=== PATIENT | female | born 1950 | race Caucasian/White ===

== ENCOUNTER 2022-11-10 12:22 | Outpatient (REF) | payer MEDICARE, MEDICAID, SELFPAY ==
[2022-11-10 14:20] LABS: MANUAL DIFF FLAG NO
[2022-11-10 14:37] LABS: Basophils Absolute Auto 0.1 X10*3/uL (0.0-0.2); Eosinophils Absolute Auto 0.2 X10*3/uL (0.0-0.4); Hematocrit 35.9 % (37.0-47.0); Hemoglobin 12.3 g/dl (12.0-16.0); Imm Gran Abs Auto 0.01 X10*3/uL (0.00-0.03); Imm Gran Pct Auto 0.2 % (0.0-0.4); Lymphocytes Absolute Auto 1.6 X10*3/uL (1.2-4.9); Lymphocytes Percent Auto 33.2 % (20-40); Mean Corpuscular HGB Conc 34.3 g/dl (31.0-35.0); Mean Corpuscular Hemoglobin 32.4 pg (27.0-33.0); Mean Corpuscular Volume 94.5 fL (80.0-98.0); Mean Platelet Volume 9.7 fL (9.4-12.3); Monocytes Absolute Auto 0.5 X10*3/uL (0.1-1.2); Monocytes Percent Auto 9.3 % (2-11); Neutrophils Absolute Auto 2.6 x10*3/uL (2.0-8.3); Neutrophils Percent Auto 52.3 % (45-73); Platelet Count 400 X10*3/uL (160-400); Red Cell Distribution Width 12.2 % (11.0-16.0); White Blood Count 4.9 X10*3/uL (4.8-10.8)
[2022-11-10 15:34] LABS: Alanine Aminotransferase 11 U/L (0-31); Albumin Level 4.4 g/dL (3.5-5.0); Alkaline Phosphatase 70 U/L (39-117); Anion Gap 11 (12-20); Aspartate Amino Transferase 14 U/L (5-31); Bilirubin Total 0.4 mg/dL (0.0-1.0); Blood Urea Nitrogen 19 mg/dL (9-16); Calcium 9.4 mg/dL (8.4-10.2); Carbon Dioxide 24 mmol/L (22-29); Chloride 110 mmol/L (96-108); Cholesterol 266 mg/dL; Estimated Glomerular Filt Rate > 60; Glucose Fasting 90 mg/dL (60-99); HDL Cholesterol 120 mg/dL; LDL Cholesterol Calculated 125 mg/dl; Potassium 4.3 mmol/L (3.3-5.1); Sodium 141 mmol/L (135-145); Total Protein 6.9 g/dL (6.5-8.0); Triglycerides 106 mg/dL
[2022-11-10 15:51] LABS: TSH reflex Free T4 2.36 uIU/mL (0.32-4.0); Vitamin D 25-OH Total 56.2 ng/mL (>30)
== END 2022-11-10 12:23 | disposition home or self-care (01) ==
LOC: HO.WFDLDS 12:22
PROVIDERS: Visit Provider Nurse Practitioner Family
DX: Z00.00 Encounter for general adult medical examination without abnormal findings (principal); E55.9 Vitamin D deficiency, unspecified; E03.9 Hypothyroidism, unspecified
CPT/HCPCS: 36415; 80053; 80061; 82306; 84443; 85025

== ENCOUNTER 2022-11-15 12:17 | Outpatient (AMB) | payer MEDICARE, MEDICAID, SELFPAY ==
[2022-11-15 12:23] VITALS: BP 138/78; PULSE 72; RESP 14; TEMP 36.3; O2SAT 94; BMI 25.9
--- NOTE | 2022-11-15 12:23 | A.OFFPC_ITS ---
Vital Signs 11/15/22 12:23 Height 5 ft 3 in Weight 146 lb BMI 25.9 BP 138/78 Blood Pressure Location Lt brachial Position Sitting Respiration 14 Pulse 72 Pulse Source Pulse Oximeter Temp 97.3 F Temp Source Temporal Artery Scan Pulse Oximetry (%) 94 Oxygen Delivery Method Room Air Intake Visit Reasons: 1 mos f/u labs Intake Note: Patient is here to follow up on her labs. Patient reports she stopped taking cyclobenzaprine due to the prescibing doctor left the practice. Entry Clerk Required: No Accompanied by: Self / Same As Patient Allergies hylan G-F 20 [Synvisc] Allergy (Unknown, Verified 11/15/22 12:33) leg swelling Medication List - Last Reconciled 11/15/22 by Masha Deutsch CNP acetaminophen 1,000 mg PO Q12H celecoxib 200 mg PO DAILY cholecalciferol (vitamin D3) 2,000 units PO DAILY levothyroxine 100 mcg PO QAM 30 days omeprazole 40 mg PO DAILY 30 days prednisone 2.5 mg PO DAILY pregabalin 75 mg PO TID 30 days sertraline 50 mg PO DAILY 30 days Tobacco use date assessed: 09/10/22 Fall risk assessment: 2 + Falls in past year Last assessed Fall Risk: 11/15/22 Dental Screening Dental Screen Date: 11/15/22 Did you have a dental visit in the last 12 months?: No Did you have a dental problem in the last 6 months where you did not have access to dental care?: No Was dental information given to patient?: Yes HPI HPI Comments History of Present Illness Details 72-year-old female presents for a follow-up visit. She established care a month ago. She has history of chronic pain, fibromyalgia, bilateral lower extremity neuropathy, hypothyroidism, vitamin-D deficiency, anxiety and depression. She was prescribed sertraline for anxiety depression at her last visit and routine labs ordered. She notes she has been taking her medications as prescribed. She reports continued back pain, worse to the lumbar spine. Current treatment regimen is effective. She notes she ran out of cyclobenzaprine which she took at bedtime. She continues to follow-up with Orthopedics and Rheumatology. She denies anxiety depression symptoms. She declines talk therapy. [facility] Medical History (Updated 09/10/22 @ 12:38 by Masha Deutsch CNP) Acid reflux Acute low back pain due to spinal disorder Arthritis Depression Headache IBS (irritable bowel syndrome) Imbalance Neuropathy Stroke Thyroid disease Tremors of nervous system Surgical History (Updated 09/10/22 @ 11:56 by uYe Leiva MA) H/O hernia repair Family History (Updated 09/10/22 @ 12:02 by Tere Moreno CMA) Mother Thyroid disorder Father High blood pressure Unknown Thyroid disorder Social History Housing: House Patient Tobacco Use Status: Never used Tobacco e-Cigarette/Vaping Use: Never Used service: No Current occupational status: retired Cognitive needs: No Hearing needs: No Vision needs: Yes Questionnaire PHQ-9 Over the last 2 weeks, how often have you been bothered by any of the following problems? 1. Little interest or pleasure in doing things: not at all 2. Feeling down, depressed, or hopeless: not at all 3. Trouble falling or staying asleep, or sleeping too much: not at all 4. Feeling tired or having little energy: not at all 5. Poor appetite or overeating: not at all 6. Feeling bad about yourself - or that you are a failure or have let yourself or your family down: not at all 7. Trouble concentrating on things, such as reading the newspaper or watching television: not at all 8. Moving or speaking so slowly that other people could have noticed. Or the opposite - being so fidgety or restless that you have been moving around a lot more than usual: not at all 9. Thoughts that you would be better off or of hurting yourself in some way: not at all Total score: 0 Depression Screening Interpretation: Negative 38948 - PHQ-9 Billing: Yes Source: Developed by Drs. Jose Martinez, Izabella Nassar, Antwan Fontana and colleagues, with an educational seth from [employer]. Thrive Questionnaire Date Thrive assessed: 09/10/22 BENJI-7 AMB Questionnaire BENJI-7 Date BENJI - 7 assessed: 11/15/22 Feeling nervous, anxious, or on edge: 0 = Not at all Not being able to stop or control worryin = Not at all Worrying too much about different things: 0 = Not at all Trouble relaxin = Not at all Being so restless that it is hard to sit still: 0 = Not at all Becoming easily annoyed or irritable: 0 = Not at all Feeling afraid as if something awful might happen: 0 = Not at all Total BENJI-7 score (0-4 normal; 5-9 mild; 10-14 moderate; 15-21 severe): 0 Source: Developed by Drs. Jose Martinez, Izabella Nassar, Antwan Fontana and colleagues, with an educational seth from [employer]. BENJI-7 Assessment Billing BENJI-7 Assessment Tool: BENJI-7 Assessment 85921 Review of Systems Const Details: Const Denies chills, Denies fatigue, Denies fever(s), Denies headache(s) and Denies weakness ENT Denies dizziness and Denies headache(s) Card Denies chest pain, Denies lightheadedness, Denies dyspnea and Denies other (Palpitations) Resp Denies cough, Denies dyspnea, Denies wheezing and Denies other ( shortness of breath) GI Denies abdominal pain, Denies melena, Denies hematochezia, Denies change in bowel habits, Denies dyspepsia and Denies nausea Denies hematuria and Denies dysuria Musc Reports back pain, Denies abnormal gait, Denies numbness and Denies tingling Skin/Breast Denies rash, Denies unusual bruising and Denies wounds Neuro Denies abnormal gait, Denies dizziness, Denies headache(s), Denies memory loss, Denies numbness, Denies Sensory deficit (Neuro), Denies tingling and Denies weakness Psych Denies anxiety, Denies depression, Denies memory loss Endo Denies cold intolerance, Denies fatigue, Denies heat intolerance, Denies polydipsia and Denies polyuria Aller/Immun Denies wheezing Physical exam (Primary Care) Vital Signs: Last Vital Signs Temp 97.3 F 11/15/22 12:23 Pulse 72 11/15/22 12:23 Resp 14 11/15/22 12:23 BP 138/78 11/15/22 12:23 Pulse Ox 94 11/15/22 12:23 Oxygen Delivery Method Room Air 11/15/22 12:23 BMI result Body Mass Index 25.9 Tobacco/Smoking Status: Tobacco use Status Tobacco use date assessed 09/10/22 11/15/22 12:33 Patient Tobacco Use Status Never used Tobacco 11/15/22 12:33 e-Cigarette/Vaping Use Never Used 11/15/22 12:33 Depression Screening Interpretation: Negative Thrive Assessment: Date of Thrive Assessment Date Thrive assessed 09/10/22 11/15/22 12:33 Const Other: General: no acute distress and well developed Nutritional Appearance: well nourished Orientation/consciousness: patient oriented x3 [facility] Head: Yes normocephalic and Yes atraumatic Eyes General: appearance normal, both eyes and all related structures Pupils: Equal, round and reactive pupils present EOM: EOMs intact bilaterally Resp Effort & Inspection: normal respiratory effort Auscultation: clear to auscultation bilaterally Cardio Rate: regular rate Rhythm: regular rhythm Heart sounds: S1 normal heart sound present, S2 normal heart sound present, no gallops, no murmurs and no rubs GI Palpation (GI): No Abdominal aortic bruit present, Soft to palpation, nontender, No hepatosplenomegaly present and No Rebound tenderness present Auscultation: normal bowel sounds General: Yes no CVA tenderness Back/Spine/Pelvis Back: no CVA tenderness Cervical Spine: cervical ROM normal and No Cervical spine tenderness Thoracic/Lumbar Spine: thoraco-lumbar ROM normal, No pain with thoraco-lumbar ROM, No thoracic spinal tenderness and lumbar spinal tenderness Extrem General: Yes normal to inspection, No edema and No calf tenderness Skin General: warm and dry. Normal skin color. Normal skin turgor Lesions: no lesions Rashes: no rashes Trauma: no lacerations or abrasions Wounds: no wounds Nails: normal Neuro General: patient oriented x3, gait normal and no focal neuro deficit Cranial nerves: Yes Equal, round and reactive pupils present Cognition (Neuro): normal cognition Gait exam (Neuro): Normal gait present Sensory Exam: No Sensory deficit (Neuro) Psych Appearance: grossly normal Affect: normal affect Attitude: cooperative Thought process: Normal thought process present Assessment and Plan Assessment & Plan (1) Chronic pain: Code(s): G89.29 - Other chronic pain Plan: She reports continued back pain, worse to the lumbar spine. Current treatment regimen is effective. She continues to follow-up with Orthopedics and Rheumatology. Cyclobenzaprine ordered. Take as prescribed Continue with current treatment regimen Continue follow-up with Orthopedics and Rheumatology as planned Return with worsening or new symptoms Verbalized understanding and agreed with treatment plan. (2) Anxiety: Code(s): F41.9 - Anxiety disorder, unspecified Plan: BENJI-7 PHQ-9 scores are negative Declines talk therapy Sertraline as prescribed Routine exercise encouraged Follow-up with worsening or new symptoms Verbalized understanding and agreed with treatment plan. (3) Depression: Code(s): F32.A - Depression, unspecified Plan: As above (4) Hypothyroidism: Code(s): E03.9 - Hypothyroidism, unspecified Plan: Recent lab results reviewed with the patient TSH is normal Continue with current treatment regimen Follow-up with concerns or symptoms Verbalized understanding and agreed with treatment plan. (5) Vitamin D deficiency: Code(s): E55.9 - Vitamin D deficiency, unspecified Plan: Normal vitamin-D level Continue with current treatment regimen Follow-up with concerns or symptoms Verbalized understanding and agreed with treatment plan. Medications: New cyclobenzaprine 10 mg PO BEDTIME 90 days PRN 1 tab 0RF muscle spasm Changed From omeprazole 40 mg PO DAILY 30 days 30 caps 0RF To omeprazole 40 mg PO DAILY 90 days 90 caps 1RF Coding Level of Care Code Est Pt Level 3 (71055) Diagnoses Chronic pain G89.29 Anxiety F41.9 Depression F32.A Hypothyroidism E03.9 Vitamin D deficiency E55.9 Additional Codes BENJI-7 Assessment Billing - BENJI-7 Assessment Tool: BENJI-7 Assessment 97509 ([id number]) Time Spent (min) 25
== END 2022-11-15 12:55 | disposition home or self-care (01) ==
PROVIDERS: PCP Nurse Practitioner Family; Visit Provider Nurse Practitioner Family
DX: E03.9 Hypothyroidism, unspecified (principal); F41.9 Anxiety disorder, unspecified; E55.9 Vitamin D deficiency, unspecified; G89.29 Other chronic pain; F32.A Depression, unspecified
CPT/HCPCS: 99213

== ENCOUNTER 2022-11-15 12:21 | Outpatient (REF) | payer MEDICARE, MEDICAID, SELFPAY ==
[2022-11-15 14:23] LABS: Appearance Urine Clear; Color Urine Yellow; Glucose Urine UA Negative (Negative); Leukocyte Esterase Urine Negative (Negative); Nitrite Urine Negative (Negative); PH 5.5 (5.0-9.0); Specific Gravity - Urine 1.015 (1.005-1.025); Urine Blood Negative (Negative); Urine Ketones Negative (Negative); Urine Protein Negative (Neg-Trace)
== END 2022-11-15 12:22 | disposition home or self-care (01) ==
LOC: HO.WFDLDS 12:21
PROVIDERS: Visit Provider Nurse Practitioner Family
DX: Z00.00 Encounter for general adult medical examination without abnormal findings (principal)
CPT/HCPCS: 81003

== ENCOUNTER 2023-01-05 13:13 | Outpatient (AMB) | payer MEDICARE, MEDICAID, SELFPAY ==
[2023-01-05 13:21] VITALS: BP 130/76; PULSE 82; RESP 13; TEMP 36.6; O2SAT 98
--- NOTE | 2023-01-05 13:21 | MHC.PC.OV ---
Vital Signs 01/05/23 13:21 Height 5 ft 3 in BMI Reason not done Patient refused/unable BP 130/76 Blood Pressure Location Lt brachial Position Sitting Respiration 13 Pulse 82 Pulse Source Pulse Oximeter Temp 97.8 F Temp Source Temporal Artery Scan Pulse Oximetry (%) 98 Oxygen Delivery Method Room Air Intake Visit Reasons: 1 month CPE Intake Note: Patient states that shes been having a hard time getting medications due to pharmacy stating that they are not send anything else to office and also told patient that its all on you now. Patient states that pharmacy has also told her that its the way scripts are written why things are being sent back or not filled properly. Coke Inspector Required: No Accompanied by: Self / Same As Patient Allergies hylan G-F 20 [Synvisc] Allergy (Unknown, Verified 01/05/23 13:35) leg swelling Medication List - Last Reconciled 01/05/23 by Masha Deutsch CNP acetaminophen 1,000 mg PO Q12H celecoxib 200 mg PO DAILY cholecalciferol (vitamin D3) 2,000 units PO DAILY cyclobenzaprine 10 mg PO BEDTIME PRN 90 days levothyroxine 100 mcg PO QAM 90 days omeprazole 40 mg PO DAILY 90 days prednisone 2.5 mg PO DAILY pregabalin 75 mg PO TID 30 days sertraline 50 mg PO DAILY 30 days Tobacco use date assessed: 09/10/22 Fall risk assessment: 1 Fall in past year Last assessed Fall Risk: 01/05/23 Dental Screening Dental Screen Date: 01/05/23 Did you have a dental visit in the last 12 months?: No Did you have a dental problem in the last 6 months where you did not have access to dental care?: No Was dental information given to patient?: Yes HPI HPI Comments History of Present Illness Details 72-year-old female presents for complete physical exam. She established care on 09/10/2022. Routine labs were ordered. Sertraline was prescribed for anxiety and depression. She declined psychotherapy. She was advised to follow-up in a month. She has PMH significant for hypothyroidism, hyperlipidemia, chronic lower back and left knee pain, osteoarthritis, fibromyalgia, BLE neuropathy, scoliosis, GERD, vitamin D deficiency, anxiety, and depression. She reports history of hemorrhagic stroke with no residual deficits. She presents chronic generalized joints and body aches due to fibromyalgia. She is on pregabalin, celecoxib, cyclobenzaprine, prednisone. She reports significant with pregabalin. She reports significant improvement of anxiety and depression symptoms on Sertraline. She is followed by [facility]. She has not follow up with ortho in over a year. She states that her last colonoscopy 1-2 year ago: normal. She notes that her last mammogram was a year or so ago. She states I told them i don't want to know the result. She declines a new mammogram order. She states that her last bone scan was a month ago: no osteopenia or osteoporosis. She states she has not received the pneumonia vaccines but intend to get vaccinated. PENDING SALE TO [facility] Medical History Acid reflux Acute low back pain due to spinal disorder Arthritis Depression Headache IBS (irritable bowel syndrome) Imbalance Neuropathy Stroke Thyroid disease Tremors of nervous system Surgical History H/O hernia repair Family History Mother Thyroid disorder Father High blood pressure Unknown Thyroid disorder Social History Housing: House Patient Tobacco Use Status: Never used Tobacco e-Cigarette/Vaping Use: Never Used service: No Current occupational status: retired Cognitive needs: No Hearing needs: No Vision needs: No Questionnaire PHQ-9 Over the last 2 weeks, how often have you been bothered by any of the following problems? 1. Little interest or pleasure in doing things: more than half the days 2. Feeling down, depressed, or hopeless: not at all 3. Trouble falling or staying asleep, or sleeping too much: nearly every day 4. Feeling tired or having little energy: nearly every day 5. Poor appetite or overeating: not at all 6. Feeling bad about yourself - or that you are a failure or have let yourself or your family down: not at all 7. Trouble concentrating on things, such as reading the newspaper or watching television: not at all 8. Moving or speaking so slowly that other people could have noticed. Or the opposite - being so fidgety or restless that you have been moving around a lot more than usual: not at all 9. Thoughts that you would be better off or of hurting yourself in some way: not at all Total score: 8 Depression Screening Interpretation: Positive Depression Screening Follow-up: Existing condition and In treatment Depression Screening Done: Yes Source: Developed by Drs. Jose Martinez, Izabella Nassar, Antwan Fontana and colleagues, with an educational seth from [employer]. Thrive Questionnaire Date Thrive assessed: 09/10/22 AUDIT C Alcohol Use Questionnaire (AUDIT-C) 1. How often do you have a drink containing alcohol?: 2-3 times a week 2. How many drinks containing alcohol do you have on a typical day when you are drinking?: 3 or 4 3. How often do you have six or more drinks on one occasion?: Never Total Score: 4 BENJI-7 AMB Questionnaire BENJI-7 Date BENJI - 7 assessed: 01/05/23 Feeling nervous, anxious, or on edge: 0 = Not at all Not being able to stop or control worryin = Not at all Worrying too much about different things: 0 = Not at all Trouble relaxin = Nearly every day Being so restless that it is hard to sit still: 0 = Not at all Becoming easily annoyed or irritable: 0 = Not at all Feeling afraid as if something awful might happen: 0 = Not at all Total BENJI-7 score (0-4 normal; 5-9 mild; 10-14 moderate; 15-21 severe): 3 Source: Developed by Drs. Jose Martinez, Izabella Nassar, Antwan Fontana and colleagues, with an educational seth from [employer]. Review of Systems Const Details: Denies chills, Denies fatigue, Denies fever(s), Denies headache(s) and Denies weakness HEENT Denies change in vision, Denies dizziness, Denies headache(s), Denies hearing loss, Denies nasal congestion, Denies sinus pain, Denies sinus pressure and Denies sore throat Card Denies chest pain, Denies lightheadedness, Denies dyspnea and Denies other (palpitations) Resp Denies cough, Denies dyspnea and Denies wheezing GI Denies abdominal pain, Denies melena, Denies hematochezia, Denies change in bowel habits, Denies dyspepsia and Denies nausea Denies hematuria and Denies dysuria Musc Denies abnormal gait, Denies myalgias, Denies arthralgias, Denies numbness and Denies tingling Skin/Breast Denies rash, Denies unusual bruising and Denies wounds Neuro Denies abnormal gait, Denies dizziness, Denies headache(s), Denies memory loss, Denies numbness, Denies Sensory deficit (Neuro), Denies tingling and Denies weakness Psych Denies anxiety, Denies depression and Denies memory loss Endo Denies cold intolerance, Denies fatigue, Denies heat intolerance, Denies polydipsia and Denies polyuria Ivan/Lymph Denies easy bleeding and Denies easy bruising Aller/Immun Denies wheezing Physical exam (Primary Care) Vital Signs: Last Vital Signs Temp 97.8 F 01/05/23 13:21 Pulse 82 01/05/23 13:21 Resp 13 01/05/23 13:21 BP 130/76 01/05/23 13:21 Pulse Ox 98 01/05/23 13:21 Oxygen Delivery Method Room Air 01/05/23 13:21 Tobacco/Smoking Status: Tobacco use Status Tobacco use date assessed 09/10/22 01/05/23 13:37 Patient Tobacco Use Status Never used Tobacco 01/05/23 13:37 e-Cigarette/Vaping Use Never Used 01/05/23 13:37 PHQ-9: PHQ-9 Score PHQ-9: Total score 8 01/05/23 13:48 Depression Screening Interpretation: Positive Depression Screening Follow-up: Existing condition and In treatment Thrive Assessment: Date of Thrive Assessment Date Thrive assessed 09/10/22 01/05/23 13:37 Const Other: General: no acute distress, well developed, alert and awake Nutritional Appearance: well nourished Orientation/consciousness: patient oriented x3 [facility] Head: Yes normocephalic and Yes atraumatic Ears: hearing grossly normal bilaterally and TM's normal bilaterally General nose exam: Normal external nose present and Normal nares present Mouth: Normal oral and palatal mucosa present and moist mucous membranes Teeth and gingiva: dentition normal Throat: Yes oropharynx normal Eyes Pupils: Equal, round and reactive pupils present and Pupil accommodation reflex normal EOM: EOMs intact bilaterally Neck Neck: Yes normal visual inspection, Yes no lymphadenopathy and Yes trachea midline Thyroid: Thyroid normal Carotids: no bruits Lymphatic: no lymphadenopathy noted Chest Chest palpation & inspection: normal inspection of the chest Resp Effort & Inspection: normal respiratory effort Auscultation: clear to auscultation bilaterally Cardio Rate: regular rate Rhythm: regular rhythm Heart sounds: S1 normal heart sound present, S2 normal heart sound present, no gallops, no murmurs and no rubs Bruits: no abdominal aortic bruits and no carotid bruits GI Palpation (GI): No Abdominal aortic bruit present, Soft to palpation, nontender, No hepatosplenomegaly present and No Rebound tenderness present Auscultation: normal bowel sounds General: Yes no CVA tenderness Back/Spine/Pelvis Back: no CVA tenderness Dextroscoliosis Cervical Spine: cervical spine normal, No Cervical spine tenderness Thoracic/Lumbar Spine: No pain with thoraco-lumbar ROM, No thoracic spinal tenderness and No lumbar spinal tenderness Skin General: warm and dry. Normal skin color. Normal skin turgor Lesions: no lesions Rashes: no rashes Trauma: no lacerations or abrasions Wounds: no wounds Nails: normal Neuro General: patient oriented x3, gait normal and CN's II-XI intact bilaterally Cranial nerves: Yes Equal, round and reactive pupils present Cognition (Neuro): normal cognition Gait exam (Neuro): Normal gait present Motor exam (neuro): 5/5 motor strength present throughout Sensory Exam: No Sensory deficit (Neuro) Deep tendon reflexes (DTR's): Right patellar reflex intensity grade: 2+ and Left patellar reflex intensity grade: 2+ Extrem General: Yes normal to inspection, No edema and No calf tenderness Psych Appearance: grossly normal Affect: normal affect Attitude: cooperative Thought process: Normal thought process present Assessment and Plan Assessment & Plan (1) Normal physical examination, routine: Code(s): Z00.00 - Encounter for general adult medical examination without abnormal findings Plan: Normal physical exam with moderate physical limitations noted due to generalized muscle and joint ache Continue with current pain regimen Continue follow-up with Rheumatology as planned Follow-up in 3 months or return sooner with worsening or new symptoms Verbalized understanding and agreed with treatment plan. (2) Hyperlipidemia: Code(s): E78.5 - Hyperlipidemia, unspecified Qualifiers: Hyperlipidemia type: pure hypercholesterolemia Qualified Code(s): E78.00 - Pure hypercholesterolemia, unspecified Plan: Recent lab results reviewed with the patient Total cholesterol and LDL were elevated. Triglycerides and HDL were normal. Advised to limit foods high in saturated fat and avoid foods high trans fat Routine exercise encouraged Will continue to monitor Verbalized understanding and agreed with treatment plan. (3) Vaccine counseling: Code(s): Z71.85 - Encounter for immunization safety counseling Plan: She states she has not received the pneumonia vaccines but intend to get vaccinated. Instructed on importance of vaccinations and encouraged to get the pneumonia vaccines. Verbalized understanding and agreed with treatment plan. Medications: Changed From cholecalciferol (vitamin D3) 2,000 units PO DAILY To cholecalciferol (vitamin D3) 2,000 units PO DAILY 90 days 90 caps 2RF Refilled sertraline 50 mg PO DAILY 30 days 30 tabs 3RF Coding Level of Care Code Est Pt Prev Care >65y(03450) Diagnoses Normal physical examination, routine Z00.00 Pure hypercholesterolemia E78.00 Hyperlipidemia type: pure hypercholesterolemia Vaccine counseling Z71.85
== END 2023-01-05 14:18 | disposition home or self-care (01) ==
PROVIDERS: PCP Nurse Practitioner Family; Visit Provider Nurse Practitioner Family
DX: Z00.00 Encounter for general adult medical examination without abnormal findings (principal); E78.00 Pure hypercholesterolemia, unspecified; Z71.85 Encounter for immunization safety counseling
CPT/HCPCS: 99397

== ENCOUNTER 2023-04-29 13:26 | Outpatient (AMB) | payer MEDICARE, SELFPAY ==
[2023-04-29 13:34] VITALS: BP 144/88; PULSE 62; RESP 13; TEMP 36.6; O2SAT 100; BMI 26.7
--- NOTE | 2023-04-29 13:34 | A.OFFPC_ITS ---
Vital Signs 04/29/23 13:34 Height 5 ft 3 in Weight 150 lb 8 oz BMI 26.7 BP 144/88 H Blood Pressure Location Rt brachial Position Sitting Respiration 13 Pulse 62 Pulse Source Pulse Oximeter Temp 97.8 F Temp Source Temporal Artery Scan Pulse Oximetry (%) 100 Oxygen Delivery Method Room Air Intake Visit Reasons: 3 month follow,Thyroid Senior Scientist Required: No Accompanied by: Self / Same As Patient Allergies hylan G-F 20 [Synvisc] Allergy (Unknown, Verified 04/29/23 13:48) leg swelling Medication List - Last Reconciled 04/29/23 by Masha Deutsch CNP acetaminophen 1,000 mg PO Q12H celecoxib 200 mg PO DAILY cholecalciferol (vitamin D3) 2,000 units PO DAILY 90 days cyclobenzaprine 10 mg PO BEDTIME PRN 90 days levothyroxine 100 mcg PO QAM 90 days omeprazole 40 mg PO DAILY 90 days prednisone 2.5 mg PO DAILY pregabalin 75 mg PO TID 30 days sertraline 50 mg PO DAILY 30 days Tobacco use date assessed: 04/29/23 Fall risk assessment: No Falls in past year Last assessed Fall Risk: 04/29/23 Dental Screening Dental Screen Date: 04/29/23 Did you have a dental visit in the last 12 months?: No Did you have a dental problem in the last 6 months where you did not have access to dental care?: No Was dental information given to patient?: Yes HPI HPI Comments History of Present Illness Details 72-year-old female presents for hypothyr oidism follow-up She admits to taking her medications as prescribed without adverse reactions. She notes she currently takes sertraline 75 mg daily She reports continued depression which she attributes to generalized chronic pain She denies acute symptoms at this time She continues to follow Rheumatology for OA and fibromyalgia [facility] Medical History Dextroscoliosis Depression Tremors of nervous system Imbalance Neuropathy Headache Acid reflux IBS (irritable bowel syndrome) Acute low back pain due to spinal disorder Arthritis Thyroid disease Stroke Surgical History H/O hernia repair Family History Mother Thyroid disorder Father High blood pressure Unknown Thyroid disorder Social History Housing: House Patient Tobacco Use Status: Never used Tobacco e-Cigarette/Vaping Use: Never Used service: No Current occupational status: retired Cognitive needs: No Hearing needs: No Vision needs: No Questionnaire PHQ-9 Over the last 2 weeks, how often have you been bothered by any of the following problems? 1. Little interest or pleasure in doing things: not at all 2. Feeling down, depressed, or hopeless: several days 3. Trouble falling or staying asleep, or sleeping too much: nearly every day 4. Feeling tired or having little energy: nearly every day 5. Poor appetite or overeating: not at all 6. Feeling bad about yourself - or that you are a failure or have let yourself or your family down: not at all 7. Trouble concentrating on things, such as reading the newspaper or watching television: nearly every day 8. Moving or speaking so slowly that other people could have noticed. Or the opposite - being so fidgety or restless that you have been moving around a lot more than usual: not at all 9. Thoughts that you would be better off or of hurting yourself in some way: not at all Total score: 10 Depression Screening Interpretation: Positive Depression Screening Done: Yes 42620 - PHQ-9 Billing: Yes Source: Developed by Drs. Jose Martinez, Izabella Nassar, Antwan Fontana and colleagues, with an educational seth from [email or web address]. Thrive Questionnaire Date Thrive assessed: 09/10/22 BENJI-7 AMB Questionnaire BENJI-7 Date BENJI - 7 assessed: 04/29/23 Feeling nervous, anxious, or on edge: 2 = More than half the days Not being able to stop or control worryin = Not at all Worrying too much about different things: 0 = Not at all Trouble relaxin = Nearly every day Being so restless that it is hard to sit still: 0 = Not at all Becoming easily annoyed or irritable: 0 = Not at all Feeling afraid as if something awful might happen: 0 = Not at all Total BENJI-7 score (0-4 normal; 5-9 mild; 10-14 moderate; 15-21 severe): 5 Source: Developed by Drs. Jose Martinez, Izabella Nassar, Antwan Fontana and colleagues, with an educational seth from [email or web address]. BENJI-7 Assessment Billing BENJI-7 Assessment Tool: BENJI-7 Assessment 81135 Review of Systems Const Details: Const Denies chills, Denies fatigue, Denies fever(s), Denies headache(s) and Denies weakness ENT Denies dizziness and Denies headache(s) Card Denies chest pain, Denies lightheadedness, Denies dyspnea and Denies other (Palpitations) Resp Denies cough, Denies dyspnea, Denies wheezing and Denies other ( shortness of breath) GI Denies abdominal pain, Denies melena, Denies hematochezia, Denies change in bowel habits, Denies dyspepsia and Denies nausea Denies hematuria and Denies dysuria Musc Reports as per HPI Skin/Breast Denies rash, Denies unusual bruising and Denies wounds Neuro Denies abnormal gait, Denies dizziness, Denies headache(s), Denies memory loss, Denies numbness, Denies Sensory deficit (Neuro), Denies tingling and Denies weakness Psych Denies anxiety, Denies depression, Denies memory loss Endo Denies cold intolerance, Denies fatigue, Denies heat intolerance, Denies polydipsia and Denies polyuria Aller/Immun Denies wheezing Physical exam (Primary Care) Vital Signs: Last Vital Signs Temp 97.8 F 04/29/23 13:34 Pulse 62 04/29/23 13:34 Resp 13 04/29/23 13:34 BP 144/88 H 04/29/23 13:34 Pulse Ox 100 04/29/23 13:34 Oxygen Delivery Method Room Air 04/29/23 13:34 BMI result Body Mass Index 26.7 Tobacco/Smoking Status: Tobacco use Status Tobacco use date assessed 04/29/23 04/29/23 13:41 Patient Tobacco Use Status Never used Tobacco 04/29/23 13:41 e-Cigarette/Vaping Use Never Used 04/29/23 13:41 Depression Screening Interpretation: Positive Thrive Assessment: Date of Thrive Assessment Date Thrive assessed 09/10/22 04/29/23 13:41 Const Other: General: no acute distress and well developed Nutritional Appearance: well nourished Orientation/consciousness: patient oriented x3 [facility] Head: Yes normocephalic and Yes atraumatic Eyes General: appearance normal, both eyes and all related structures Pupils: Equal, round and reactive pupils present EOM: EOMs intact bilaterally Resp Effort & Inspection: normal respiratory effort Auscultation: clear to auscultation bilaterally Cardio Rate: regular rate Rhythm: regular rhythm Heart sounds: S1 normal heart sound present, S2 normal heart sound present, no gallops, no murmurs and no rubs GI Palpation (GI): No Abdominal aortic bruit present, Soft to palpation, nontender, No hepatosplenomegaly present and No Rebound tenderness present Auscultation: normal bowel sounds General: Yes no CVA tenderness Back/Spine/Pelvis Back: no CVA tenderness Cervical Spine: cervical ROM normal and No Cervical spine tenderness Thoracic/Lumbar Spine: thoraco-lumbar ROM normal, No pain with thoraco-lumbar ROM, No thoracic spinal tenderness and No lumbar spinal tenderness Extrem General: Yes normal to inspection, No edema and No calf tenderness Skin General: warm and dry. Normal skin color. Normal skin turgor Lesions: no lesions Rashes: no rashes Trauma: no lacerations or abrasions Wounds: no wounds Nails: normal Neuro General: patient oriented x3, gait normal and no focal neuro deficit Cranial nerves: Yes Equal, round and reactive pupils present Cognition (Neuro): normal cognition Gait exam (Neuro): Normal gait present Sensory Exam: No Sensory deficit (Neuro) Psych Appearance: grossly normal Affect: normal affect Attitude: cooperative Thought process: Normal thought process present Assessment and Plan Assessment & Plan (1) Hypothyroidism: Code(s): E03.9 - Hypothyroidism, unspecified Plan: Continue with current treatment regimen Previous TSH was normal. Will recheck TSH/T4. Advised to get blood work done before next visit Follow-up in 1 month or return sooner with symptoms or concerns Verbalized understanding and agreed with treatment plan (2) Anxiety: Code(s): F41.9 - Anxiety disorder, unspecified Plan: BENJI-7 in PHQ-9 scores revealed mild anxiety and moderate depression respectively Continued depression related to generalized chronic pain Continue with current pain regimen Will increase sertraline to 100 mg daily. Take as prescribed Follow-up in 1 month or return sooner with worsening or new symptoms Verbalized understanding and agreed with treatment plan (3) Depression: Code(s): F32.A - Depression, unspecified Plan: As above (4) Fibromyalgia: Code(s): M79.7 - Fibromyalgia Plan: Chronic generalized pain Continue current treatment regimen Continue follow-up with Rheumatology as planned Verbalized understanding and agreed with plan (5) Osteoarthritis: Code(s): M19.90 - Unspecified osteoarthritis, unspecified site Plan: As above (6) Elevated BP without diagnosis of hypertension: Code(s): R03.0 - Elevated blood-pressure reading, without diagnosis of hypertension Plan: Blood pressure is 144/88, slightly above goal of less than 140/90 Denies iraj sodium diet Advised to monitor BP daily, record readings, and bring log to her next appointment Low sodium diet encouraged Follow up in 1 month or return sooner with symptoms or concerns Verbalized understanding and agreed with the treatment plan Orders: Orders Lipid Panel Today E78.5 - Hyperlipidemia, unspecified TSH reflex Free T4 Today E03.9 - Hypothyroidism, unspecified Medications: New sertraline 100 mg PO DAILY 30 days 30 tabs 3RF Discontinued sertraline Discontinued Reason: Doctor's Order 50 mg PO DAILY 30 days 30 tabs 3RF Coding Level of Care Code Est Pt Level 3 (80292) Diagnoses Hypothyroidism E03.9 Anxiety F41.9 Depression F32.A Fibromyalgia M79.7 Osteoarthritis M19.90 Elevated BP without diagnosis of hypertension R03.0 Additional Codes BENJI-7 Assessment Billing - BENJI-7 Assessment Tool: BENJI-7 Assessment [id number] ([id number])
== END 2023-04-29 14:22 | disposition home or self-care (01) ==
PROVIDERS: PCP Nurse Practitioner Family; Visit Provider Nurse Practitioner Family
DX: E03.9 Hypothyroidism, unspecified (principal); F41.9 Anxiety disorder, unspecified; F32.A Depression, unspecified; M79.7 Fibromyalgia; M19.90 Unspecified osteoarthritis, unspecified site; R03.0 Elevated blood-pressure reading, without diagnosis of hypertension
CPT/HCPCS: 96127; 99213

== ENCOUNTER 2023-07-08 16:31 | Outpatient (AMB) | payer MEDICARE, MEDICAID, SELFPAY ==
--- NOTE | 2023-07-08 16:32 | MHC.PC.OV ---
Vital Signs 07/08/23 16:33 07/08/23 16:52 Height 5 ft 3 in Weight 154 lb BMI 27.3 BP 144/90 H 136/94 H Blood Pressure Location Rt brachial Rt brachial Position Sitting Sitting Respiration 13 Pulse 78 Pulse Source Pulse Oximeter Temp 98.3 F Temp Source Temporal Artery Scan Pulse Oximetry (%) 95 Oxygen Delivery Method Room Air Intake Visit Reasons: HTN, HLD, hypothyroidism, anxiety, depression Extracorporeal Technician Required: No Accompanied by: Self / Same As Patient Allergies hylan G-F 20 [Synvisc] Allergy (Unknown, Verified 07/08/23 16:41) leg swelling Tobacco use date assessed: 04/29/23 Fall risk assessment: No Falls in past year Last assessed Fall Risk: 07/08/23 Dental Screening Dental Screen Date: 04/29/23 HPI HPI Comments History of Present Illness Details 72-year-old female presents for elevated blood pressure reading, hyperlipidemia, hypothyroidism, anxiety, and depression follow-up She notes that she got lipid panel and TSH blood work done at the hospital endorsed emptying and was told the results would be available for his PCP before today. Results not currently available in patient's chart She admits to taking her medications as prescribed without adverse reactions She reports improved anxiety and depression symptoms since Sertraline was increased to 100 mg daily She denies acute symptoms at this time [facility] Medical History Dextroscoliosis Depression Tremors of nervous system Imbalance Neuropathy Headache Acid reflux IBS (irritable bowel syndrome) Acute low back pain due to spinal disorder Arthritis Thyroid disease Stroke Surgical History H/O hernia repair Family History (Updated 07/08/23 @ 16:43 by VENICE Ramos) Mother Thyroid disorder Father High blood pressure Unknown Thyroid disorder Social History Housing: House Patient Tobacco Use Status: Never used Tobacco e-Cigarette/Vaping Use: Never Used service: No Current occupational status: retired Cognitive needs: No Hearing needs: No Vision needs: No Questionnaire PHQ-9 Over the last 2 weeks, how often have you been bothered by any of the following problems? 1. Little interest or pleasure in doing things: not at all 2. Feeling down, depressed, or hopeless: not at all 3. Trouble falling or staying asleep, or sleeping too much: nearly every day 4. Feeling tired or having little energy: nearly every day 5. Poor appetite or overeating: not at all 6. Feeling bad about yourself - or that you are a failure or have let yourself or your family down: not at all 7. Trouble concentrating on things, such as reading the newspaper or watching television: nearly every day 8. Moving or speaking so slowly that other people could have noticed. Or the opposite - being so fidgety or restless that you have been moving around a lot more than usual: not at all 9. Thoughts that you would be better off or of hurting yourself in some way: not at all Total score: 9 Depression Screening Interpretation: Positive Depression Screening Follow-up: Existing condition and In treatment Depression Screening Done: Yes 22816 - PHQ-9 Billing: Yes Source: Developed by Drs. Jose Martinez, Izabella Nassar, Antwan Fontana and colleagues, with an educational seth from [employer]. Thrive Questionnaire Date Thrive assessed: 09/10/22 BENJI-7 AMB Questionnaire BENJI-7 Date BENJI - 7 assessed: 07/08/23 Feeling nervous, anxious, or on edge: 0 = Not at all Not being able to stop or control worryin = Not at all Worrying too much about different things: 0 = Not at all Trouble relaxin = More than half the days Being so restless that it is hard to sit still: 0 = Not at all Becoming easily annoyed or irritable: 0 = Not at all Feeling afraid as if something awful might happen: 0 = Not at all Total BENJI-7 score (0-4 normal; 5-9 mild; 10-14 moderate; 15-21 severe): 2 Source: Developed by Drs. Jose Martinez, Antwan De Dios and colleagues, with an educational seth from [employer]. BENJI-7 Assessment Billing BENJI-7 Assessment Tool: BENJI-7 Assessment 68502 Review of Systems Const Details: Const Denies chills, Denies fatigue, Denies fever(s), Denies headache(s) and Denies weakness ENT Denies dizziness and Denies headache(s) Card Denies chest pain, Denies lightheadedness, Denies dyspnea and Denies other (Palpitations) Resp Denies cough, Denies dyspnea, Denies wheezing and Denies other ( shortness of breath) GI Denies abdominal pain, Denies melena, Denies hematochezia, Denies change in bowel habits, Denies dyspepsia and Denies nausea Denies hematuria and Denies dysuria Musc Denies abnormal gait, Denies myalgias, Denies arthralgias, Denies numbness and Denies tingling Skin/Breast Denies rash, Denies unusual bruising and Denies wounds Neuro Denies abnormal gait, Denies dizziness, Denies headache(s), Denies memory loss, Denies numbness, Denies Sensory deficit (Neuro), Denies tingling and Denies weakness Psych Denies anxiety, Denies depression, Denies memory loss Endo Denies cold intolerance, Denies fatigue, Denies heat intolerance, Denies polydipsia and Denies polyuria Aller/Immun Denies wheezing Physical exam (Primary Care) Tobacco/Smoking Status: Tobacco use Status Tobacco use date assessed 04/29/23 04/29/23 13:41 Patient Tobacco Use Status Never used Tobacco 04/29/23 13:41 e-Cigarette/Vaping Use Never Used 04/29/23 13:41 Depression Screening Interpretation: Positive Depression Screening Follow-up: Existing condition and In treatment Thrive Assessment: Date of Thrive Assessment Date Thrive assessed 09/10/22 04/29/23 13:41 Const Other: General: no acute distress and well developed Nutritional Appearance: well nourished Orientation/consciousness: patient oriented x3 [facility] Head: Yes normocephalic and Yes atraumatic Eyes General: appearance normal, both eyes and all related structures Pupils: Equal, round and reactive pupils present EOM: EOMs intact bilaterally Resp Effort & Inspection: normal respiratory effort Auscultation: clear to auscultation bilaterally Cardio Rate: regular rate Rhythm: regular rhythm Heart sounds: S1 normal heart sound present, S2 normal heart sound present, no gallops, no murmurs and no rubs GI Palpation (GI): No Abdominal aortic bruit present, Soft to palpation, nontender, No hepatosplenomegaly present and No Rebound tenderness present Auscultation: normal bowel sounds General: Yes no CVA tenderness Back/Spine/Pelvis Back: no CVA tenderness Cervical Spine: cervical ROM normal and No Cervical spine tenderness Thoracic/Lumbar Spine: thoraco-lumbar ROM normal, No pain with thoraco-lumbar ROM, No thoracic spinal tenderness and No lumbar spinal tenderness Extrem General: Yes normal to inspection, No edema and No calf tenderness Skin General: warm and dry. Normal skin color. Normal skin turgor Neuro General: patient oriented x3, gait normal and no focal neuro deficit Cranial nerves: Yes Equal, round and reactive pupils present Cognition (Neuro): normal cognition Gait exam (Neuro): Normal gait present Sensory Exam: No Sensory deficit (Neuro) Psych Appearance: grossly normal Affect: normal affect Attitude: cooperative Thought process: Normal thought process present Assessment and Plan Assessment & Plan (1) Elevated BP without diagnosis of hypertension: Code(s): R03.0 - Elevated blood-pressure reading, without diagnosis of hypertension Plan: Resting blood pressure is 136/94, slightly above goal of less than 140/90 Low-sodium diet encouraged Will continue to monitor Follow-up in 2 months or return sooner with worsening or new symptoms Verbalized understanding and agreed with treatment plan (2) Hyperlipidemia: Code(s): E78.5 - Hyperlipidemia, unspecified Qualifiers: Hyperlipidemia type: pure hypercholesterolemia Qualified Code(s): E78.00 - Pure hypercholesterolemia, unspecified Plan: Patient perform blood work at an outside hospital. Lab results not currently available in her chart. She will contact the hospital and provide her recent lab results Continue current treatment regimen Advised to limit foods high in saturated fat and avoid foods high in trans fat Routine exercise encouraged Follow-up in 2 months Verbalized understanding and agreed with the treatment plan (3) Hypothyroidism: Code(s): E03.9 - Hypothyroidism, unspecified Plan: Patient perform blood work at an outside hospital. Lab results not currently available in her chart. She will contact the hospital and provide her recent lab results Continue current treatment regimen Follow-up in 2 months Verbalized understanding and agreed with the treatment plan (4) Anxiety: Code(s): F41.9 - Anxiety disorder, unspecified Plan: Reports improved anxiety and depression symptoms on current treatment regimen PHQ-9 score revealed mild depression. BENJI-7 score is normal Continue current treatment regimen Routine exercise encouraged Follow-up in 2 months or return sooner with worsening or new symptoms Verbalized understanding and agreed with the treatment plan (5) Depression: Code(s): F32.A - Depression, unspecified Plan: As above Coding Level of Care Code Est Pt Level 3 (92152) Diagnoses Elevated BP without diagnosis of hypertension R03.0 Pure hypercholesterolemia E78.00 Hyperlipidemia type: pure hypercholesterolemia Hypothyroidism E03.9 Anxiety F41.9 Depression F32.A Additional Codes BENJI-7 Assessment Billing - BENJI-7 Assessment Tool: BENJI-7 Assessment [id number] ([id number])
[2023-07-08 16:33] VITALS: BP 144/90; PULSE 78; RESP 13; TEMP 36.8; O2SAT 95; BMI 27.3
[2023-07-08 16:52] VITALS: BP 136/94
== END 2023-07-08 17:07 | disposition home or self-care (01) ==
PROVIDERS: PCP Nurse Practitioner Family; Visit Provider Nurse Practitioner Family
DX: R03.0 Elevated blood-pressure reading, without diagnosis of hypertension (principal); E78.00 Pure hypercholesterolemia, unspecified; E03.9 Hypothyroidism, unspecified; F41.9 Anxiety disorder, unspecified; F32.A Depression, unspecified
CPT/HCPCS: 99213

== ENCOUNTER → 2023-08-29 16:15 | Outpatient (AMB) | payer MEDICARE, MEDICAID, SELFPAY ==
--- NOTE | 2023-08-29 16:24 | MHC.PC.OV ---
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 Accompanied by: Self / Same As Patient Allergies hylan G-F 20 [Synvisc] Allergy (Unknown, Verified 08/29/23 16:56) leg swelling Medication List - Last Reconciled 08/29/23 by Masha Deutsch CNP acetaminophen 1,000 mg PO Q12H celecoxib 200 mg PO DAILY cholecalciferol (vitamin D3) 2,000 units PO DAILY 90 days cyclobenzaprine 10 mg PO BEDTIME PRN 90 days levothyroxine 100 mcg PO QAM 90 days omeprazole 40 mg PO DAILY 90 days prednisone 2.5 mg PO DAILY pregabalin 75 mg PO TID 30 days sertraline 100 mg PO DAILY 30 days Tobacco use date assessed: 04/29/23 Fall risk assessment: 1 Fall in past year Last assessed Fall Risk: 08/29/23 Dental Screening Dental Screen Date: 04/29/23 HPI HPI Comments History of Present Illness Details 72-year-old female presents for hypertension, hyperlipidemia, hypothyroidism, anxiety, and depression follow-up She admits to taking her medications as prescribed without adverse reactions She offers no complaints and denies acute symptoms at this time She did not get lipid panel TSH blood work done as instructed before this visit [facility] Medical History Dextroscoliosis Depression Tremors of nervous system Imbalance Neuropathy Headache Acid reflux IBS (irritable bowel syndrome) Acute low back pain due to spinal disorder Arthritis Thyroid disease Stroke Surgical History H/O hernia repair Family History Mother Thyroid disorder Father High blood pressure Unknown Thyroid disorder Social History Housing: House Patient Tobacco Use Status: Never used Tobacco e-Cigarette/Vaping Use: Never Used service: No Current occupational status: retired Cognitive needs: No Hearing needs: No Vision needs: No Questionnaire PHQ-9 Over the last 2 weeks, how often have you been bothered by any of the following problems? 1. Little interest or pleasure in doing things: not at all 2. Feeling down, depressed, or hopeless: not at all 3. Trouble falling or staying asleep, or sleeping too much: not at all 4. Feeling tired or having little energy: nearly every day 5. Poor appetite or overeating: not at all 6. Feeling bad about yourself - or that you are a failure or have let yourself or your family down: not at all 7. Trouble concentrating on things, such as reading the newspaper or watching television: not at all 8. Moving or speaking so slowly that other people could have noticed. Or the opposite - being so fidgety or restless that you have been moving around a lot more than usual: not at all 9. Thoughts that you would be better off or of hurting yourself in some way: not at all Total score: 3 Depression Screening Interpretation: Positive Depression Screening Done: Yes 33621 - PHQ-9 Billing: Yes Source: Developed by Drs. Jose Martinez, Izabella Nassar, Antwan Fontana and colleagues, with an educational seth from [employer]. Thrive Questionnaire Date Thrive assessed: 09/10/22 BENJI-7 AMB Questionnaire BENJI-7 Date BENJI - 7 assessed: 08/29/23 Feeling nervous, anxious, or on edge: 0 = Not at all Not being able to stop or control worryin = Not at all Worrying too much about different things: 0 = Not at all Trouble relaxin = Not at all Being so restless that it is hard to sit still: 0 = Not at all Becoming easily annoyed or irritable: 0 = Not at all Feeling afraid as if something awful might happen: 0 = Not at all Total BENJI-7 score (0-4 normal; 5-9 mild; 10-14 moderate; 15-21 severe): 0 Source: Developed by Drs. Jose Martinez, Izabella Nassar, Antwan Fontana and colleagues, with an educational seth from [employer]. BENJI-7 Assessment Billing BENJI-7 Assessment Tool: BENJI-7 Assessment 79358 Review of Systems Const Details: Const Denies chills, Denies fatigue, Denies fever(s), Denies headache(s) and Denies weakness ENT Denies dizziness and Denies headache(s) Card Denies chest pain, Denies lightheadedness, Denies dyspnea and Denies other (Palpitations) Resp Denies cough, Denies dyspnea, Denies wheezing and Denies other ( shortness of breath) GI Denies abdominal pain, Denies melena, Denies hematochezia, Denies change in bowel habits, Denies dyspepsia and Denies nausea Denies hematuria and Denies dysuria Musc Denies abnormal gait, Denies myalgias, Denies arthralgias, Denies numbness and Denies tingling Skin/Breast Denies rash, Denies unusual bruising and Denies wounds Neuro Denies abnormal gait, Denies dizziness, Denies headache(s), Denies memory loss, Denies numbness, Denies Sensory deficit (Neuro), Denies tingling and Denies weakness Psych Denies anxiety, Denies depression, Denies memory loss Endo Denies cold intolerance, Denies fatigue, Denies heat intolerance, Denies polydipsia and Denies polyuria Aller/Immun Denies wheezing Physical exam (Primary Care) Vital Signs: Last Vital Signs Temp 97.8 F 08/29/23 16:25 Pulse 78 08/29/23 16:25 Resp 14 08/29/23 16:25 BP 120/80 08/29/23 17:00 Pulse Ox 98 08/29/23 16:25 Oxygen Delivery Method Room Air 08/29/23 16:25 BMI result Body Mass Index 27.0 Tobacco/Smoking Status: Tobacco use Status Tobacco use date assessed 04/29/23 08/29/23 16:32 Patient Tobacco Use Status Never used Tobacco 08/29/23 16:32 e-Cigarette/Vaping Use Never Used 08/29/23 16:32 PHQ-9: PHQ-9 Score PHQ-9: Total score 3 08/30/23 06:41 Depression Screening Interpretation: Positive Thrive Assessment: Date of Thrive Assessment Date Thrive assessed 09/10/22 08/29/23 16:32 Const Other: General: no acute distress and well developed Nutritional Appearance: well nourished Orientation/consciousness: patient oriented x3 HENFL Head: Yes normocephalic and Yes atraumatic Eyes General: appearance normal, both eyes and all related structures Pupils: Equal, round and reactive pupils present EOM: EOMs intact bilaterally Resp Effort & Inspection: normal respiratory effort Auscultation: clear to auscultation bilaterally Cardio Rate: regular rate Rhythm: regular rhythm Heart sounds: S1 normal heart sound present, S2 normal heart sound present, no gallops, no murmurs and no rubs GI Palpation (GI): No Abdominal aortic bruit present, Soft to palpation, nontender, No hepatosplenomegaly present and No Rebound tenderness present Auscultation: normal bowel sounds General: Yes no CVA tenderness Back/Spine/Pelvis Back: no CVA tenderness Cervical Spine: cervical ROM normal and No Cervical spine tenderness Thoracic/Lumbar Spine: thoraco-lumbar ROM normal, No pain with thoraco-lumbar ROM, No thoracic spinal tenderness and No lumbar spinal tenderness Extrem General: Yes normal to inspection, No edema and No calf tenderness Skin General: warm and dry. Normal skin color. Normal skin turgor Neuro General: patient oriented x3, gait normal and no focal neuro deficit Cranial nerves: Yes Equal, round and reactive pupils present Cognition (Neuro): normal cognition Gait exam (Neuro): Normal gait present Sensory Exam: No Sensory deficit (Neuro) Psych Appearance: grossly normal Affect: normal affect Attitude: cooperative Thought process: Normal thought process present Assessment and Plan Assessment & Plan (1) Hyperlipidemia: Code(s): E78.5 - Hyperlipidemia, unspecified Qualifiers: Hyperlipidemia type: pure hypercholesterolemia Qualified Code(s): E78.00 - Pure hypercholesterolemia, unspecified Plan: Lipid panel blood work was not done Advised to get fasting blood work done as planned Follow-up in 4 months for an extended physical exam or return sooner with symptoms or concerns Verbalized understanding and agreed with treatment plan (2) Hypothyroidism: Code(s): E03.9 - Hypothyroidism, unspecified Plan: TSH/T4 blood work not done Advised to get blood work done as planned Verbalized understanding and agreed with the plan (3) Anxiety: Code(s): F41.9 - Anxiety disorder, unspecified Plan: Controlled anxiety and depressive symptoms Continue current treatment regimen Routine exercise encouraged Follow-up with symptoms or concerns Verbalized understanding and agreed with treatment plan (4) Depression: Code(s): F32.A - Depression, unspecified Plan: As above (5) Laboratory tests ordered as part of a complete physical exam (CPE): Code(s): Z00.00 - Encounter for general adult medical examination without abnormal findings Plan: Fasting labs ordered in preparation of a complete physical exam. Advised to fast for at least 10 hours before getting labs drawn. May drink water Verbalized understanding and agreed with treatment plan. Orders: Orders Comprehensive [place]. Panel Fast 08/29/23 Z00.00 - Encounter for general adult medical examination without abnormal findings Complete Blood Count Auto Diff 08/29/23 Z00.00 - Encounter for general adult medical examination without abnormal findings UA CC w/rflx Micro + Cult 08/29/23 Z00.00 - Encounter for general adult medical examination without abnormal findings Microalbumin, Random (w Creat) 08/29/23 Z00.00 - Encounter for general adult medical examination without abnormal findings Coding Level of Care Code Est Pt Level 4 (56399) Complex EM visit Add On G2211 Diagnoses Pure hypercholesterolemia E78.00 Hyperlipidemia type: pure hypercholesterolemia Hypothyroidism E03.9 Anxiety F41.9 Depression F32.A Laboratory tests ordered as part of a complete physical exam (CPE) Z00.00 Additional Codes BENJI-7 Assessment Billing - BENJI-7 Assessment Tool: BENJI-7 Assessment 16260 ([id number])
[2023-08-29 16:25] VITALS: BP 146/80; PULSE 78; RESP 14; TEMP 36.6; O2SAT 98; BMI 27.0
[2023-08-29 17:00] VITALS: BP 120/80
== END ==
PROVIDERS: PCP Nurse Practitioner Family; Visit Provider Nurse Practitioner Family
DX: E78.00 Pure hypercholesterolemia, unspecified (principal); E03.9 Hypothyroidism, unspecified; F41.9 Anxiety disorder, unspecified; F32.A Depression, unspecified
CPT/HCPCS: 99214; G2211

== ENCOUNTER 2023-12-09 15:00 | Outpatient (REF) | payer MEDICARE, MEDICAID, SELFPAY ==
[2023-12-09 17:31] LABS: MANUAL DIFF FLAG NO
[2023-12-09 17:40] LABS: Basophils Absolute Auto 0.1 X10*3/uL (0.0-0.2); Basophils Percent Auto 1.7 % (0-2); Eosinophils Absolute Auto 0.2 X10*3/uL (0.0-0.4); Eosinophils Percent Auto 5.9 % (0-4); Hematocrit 35.6 % (37.0-47.0); Hemoglobin 11.7 g/dl (12.0-16.0); Imm Gran Abs Auto 0.01 X10*3/uL (0.00-0.03); Imm Gran Pct Auto 0.2 % (0.0-0.4); Lymphocytes Absolute Auto 1.8 X10*3/uL (1.2-4.9); Lymphocytes Percent Auto 43.5 % (20-40); Mean Corpuscular HGB Conc 32.9 g/dl (31.0-35.0); Mean Corpuscular Hemoglobin 28.1 pg (27.0-33.0); Mean Corpuscular Volume 85.6 fL (80.0-98.0); Mean Platelet Volume 9.5 fL (9.4-12.3); Monocytes Absolute Auto 0.4 X10*3/uL (0.1-1.2); Monocytes Percent Auto 10.8 % (2-11); Neutrophils Absolute Auto 1.5 x10*3/uL (2.0-8.3); Neutrophils Percent Auto 37.9 % (45-73); Platelet Count 374 X10*3/uL (160-400); Red Blood Count 4.16 X10*6/uL (4.20-5.50); Red Cell Distribution Width 14.8 % (11.0-16.0); White Blood Count 4.1 X10*3/uL (4.8-10.8)
[2023-12-09 17:59] LABS: Alanine Aminotransferase 13 U/L (0-31); Albumin Level 4.3 g/dL (3.5-5.0); Alkaline Phosphatase 73 U/L (39-117); Anion Gap 13 (12-20); Aspartate Amino Transferase 17 U/L (5-31); Bilirubin Total 0.5 mg/dL (0.0-1.0); Blood Urea Nitrogen 19 mg/dL (9-16); Carbon Dioxide 24 mmol/L (22-29); Chloride 109 mmol/L (96-108); Cholesterol 304 mg/dL (<200); Estimated Glomerular Filt Rate > 60; Glucose Fasting 85 mg/dL (60-99); HDL Cholesterol 148 mg/dL (>40); LDL Cholesterol Calculated 142 mg/dL (<100); Potassium 4.2 mmol/L (3.3-5.1); Sodium 142 mmol/L (135-145); Total Protein 6.6 g/dL (6.5-8.0); Triglycerides 72 mg/dL (<150)
[2023-12-09 18:11] LABS: TSH reflex Free T4 3.32 uIU/mL (0.32-4.0)
== END 2023-12-09 15:01 | disposition home or self-care (01) ==
LOC: HO.WFDLDS 15:00
PROVIDERS: Visit Provider Nurse Practitioner Family
DX: Z00.00 Encounter for general adult medical examination without abnormal findings (principal); E03.9 Hypothyroidism, unspecified; E78.5 Hyperlipidemia, unspecified
CPT/HCPCS: 36415; 80053; 80061; 84443; 85025

== ENCOUNTER 2023-12-14 10:41 | Outpatient (AMB) | payer MEDICARE, MEDICAID, SELFPAY ==
--- NOTE | 2023-12-14 10:55 | A.OFFPC_ITS ---
Vital Signs 12/14/23 11:01 Height 5 ft 3 in Weight 149 lb 2 oz BMI 26.4 BP 140/88 H Blood Pressure Location Lt brachial Position Sitting Respiration 16 Pulse 82 Pulse Source Pulse Oximeter Temp 98.6 F Temp Source Oral Pulse Oximetry (%) 95 Oxygen Delivery Method Room Air Intake Visit Reasons: follow up labs Intake Note: patient here for follow up labs. 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 Is last menstrual period known: No Post menopausal: No Patient : No Allergies hylan G-F 20 [Synvisc] Allergy (Unknown, Verified 12/14/23 11:12) leg swelling Medication List - Last Reconciled 12/14/23 by Masha Deutsch CNP acetaminophen 1,000 mg PO Q12H celecoxib 200 mg PO DAILY cholecalciferol (vitamin D3) 2,000 units PO DAILY 90 days levothyroxine 100 mcg PO QAM 90 days omeprazole 40 mg PO DAILY 90 days prednisone 2.5 mg PO DAILY pregabalin 75 mg PO TID 30 days sertraline 100 mg PO DAILY 30 days Tobacco use date assessed: 12/14/23 Fall risk assessment: No Falls in past year Last assessed Fall Risk: 12/14/23 Dental Screening Dental Screen Date: 12/14/23 Did you have a dental visit in the last 12 months?: No Did you have a dental problem in the last 6 months where you did not have access to dental care?: No Was dental information given to patient?: Patient declined HPI HPI Comments History of Present Illness Details 73-year-old female presents for review o f recent lab results She reports fatigue with the past 1 month. She admits to taking her vitamin-D supplement. She has not been able to exercise/work due to chronic generalized pain and low back pain. 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 Bullard, rheumatology, [place]. She is advised to sign a release for PCP to obtain Rheumatology record [facility] Medical History Dextroscoliosis Depression Tremors of nervous system Imbalance Neuropathy Headache Acid reflux IBS (irritable bowel syndrome) Acute low back pain due to spinal disorder Arthritis Thyroid disease Stroke Surgical History H/O hernia repair Family History Mother Thyroid disorder Father High blood pressure Unknown Thyroid disorder Social History Housing: House Patient Tobacco Use Status: Never used Tobacco e-Cigarette/Vaping Use: Never Used service: No Current occupational status: retired Cognitive needs: No Hearing needs: No Vision needs: No Questionnaire Thrive Questionnaire Date Thrive assessed: 09/10/22 BENJI-7 AMB Questionnaire BENJI-7 Date BENJI - 7 assessed: 08/29/23 Source: Developed by Drs. Jose Martinez, Izabella Nassar, Antwan Fontana and colleagues, with an educational seth from [employer]. Review of Systems Const Details: Const Denies chills, Reports fatigue, Denies fever(s), Denies headache(s) and Denies weakness ENT Denies dizziness and Denies headache(s) Card Denies chest pain, Denies lightheadedness, Denies dyspnea and Denies other (Palpitations) Resp Denies cough, Denies dyspnea, Denies wheezing and Denies other ( shortness of breath) GI Denies abdominal pain, Denies melena, Denies hematochezia, Denies change in bowel habits, Denies dyspepsia and Denies nausea Denies hematuria and Denies dysuria Musc Denies abnormal gait, Denies numbness and Denies tingling Skin/Breast Denies rash, Denies unusual bruising and Denies wounds Neuro Denies abnormal gait, Denies dizziness, Denies headache(s), Denies memory loss, Denies numbness, Denies Sensory deficit (Neuro), Denies tingling and Denies weakness Psych Denies anxiety, Denies depression, Denies memory loss Endo Denies cold intolerance, Reports fatigue, Denies heat intolerance, Denies polydipsia and Denies polyuria Aller/Immun Denies wheezing Physical exam (Primary Care) Tobacco/Smoking Status: Tobacco use Status Tobacco use date assessed 04/29/23 12/14/23 10:57 Patient Tobacco Use Status Never used Tobacco 12/14/23 10:57 e-Cigarette/Vaping Use Never Used 12/14/23 10:57 Thrive Assessment: Date of Thrive Assessment Date Thrive assessed 09/10/22 12/14/23 10:57 Const Other: General: no acute distress and well developed Nutritional Appearance: well nourished Orientation/consciousness: [facility]: Yes normocephalic and Yes atraumatic Eyes General: appearance normal, both eyes and all related structures Pupils: Equal, round and reactive pupils present EOM: EOMs intact bilaterally Resp Effort & Inspection: normal respiratory effort Auscultation: clear to auscultation bilaterally Cardio Rate: regular rate Rhythm: regular rhythm Heart sounds: S1 normal heart sound present, S2 normal heart sound present, no gallops, no murmurs and no rubs GI Palpation (GI): No Abdominal aortic bruit present, Soft to palpation, nontender, No hepatosplenomegaly present and No Rebound tenderness present Auscultation: normal bowel sounds General: Yes no CVA tenderness Back/Spine/Pelvis Back: no CVA tenderness Cervical Spine: cervical ROM normal and No Cervical spine tenderness Thoracic/Lumbar Spine: thoraco-lumbar ROM normal, No pain with thoraco-lumbar ROM, No thoracic spinal tenderness and No lumbar spinal tenderness Extrem General: Yes normal to inspection, No edema and No calf tenderness Skin General: warm and dry. Normal skin color. Normal skin turgor Neuro General: patient oriented x3, gait normal and no focal neuro deficit Cranial nerves: Yes Equal, round and reactive pupils present Cognition (Neuro): normal cognition Gait exam (Neuro): Normal gait present Sensory Exam: No Sensory deficit (Neuro) Psych Appearance: grossly normal Affect: normal affect Attitude: cooperative Thought process: Normal thought process present Assessment and Plan Assessment & Plan (1) Hypercholesterolemia: Code(s): E78.00 - Pure hypercholesterolemia, unspecified Plan: Recent total cholesterol and LDL levels are elevated, 304 and 142 respectively Declines statin therapy due to reported lower extremity pain from other individuals Will start Zetia 10 mg daily. Advised to take as prescribed. Instructed on the risks, benefits, and potential adverse reactions of the medications Advised to limit foods high in saturated fat and avoid foods high in trans fat Encouraged to expand activities as tolerable Follow-up in 1 month for an extended physical exam or sooner with symptoms or concerns Verbalized understanding and agreed with the plan (2) Mild anemia: Code(s): D64.9 - Anemia, unspecified Plan: Recent RBC and H&H is slightly low, 4.16 and 11.7/35.6 respectively Likely due to chronic illness Will check vitamin B12 and folate levels due to reported fatigue (3) Leukocytopenia: Code(s): D72.819 - Decreased white blood cell count, unspecified Plan: Recent WBC count is slightly low, 4.1 No obvious signs of infection (4) Fatigue: Code(s): R53.83 - Other fatigue Plan: Reports fatigue for the past 1 month She has not been able to exercise due to chronic low back pain Recent TSH was normal Will check vitamin-D, B12, and folate levels Encouraged to expand her activities as tolerable Continue to take Tylenol and pregabalin as prescribed for chronic pain Follow-up with worsening or new symptoms Verbalized understanding and agreed with treatment plan (5) Chronic low back pain: Code(s): M54.50 - Low back pain, unspecified; G89.29 - Other chronic pain Plan: Reports chronic low back pain which limit her functional mobility No overt injury/trauma Lumbar spine nontender to palpation Continue current treatment regimen [facility] [facility] [place] Orders: Orders Vitamin B12 and Folate Today D64.9 - Anemia, unspecified, R53.83 - Other fatigue Vitamin D 25-OH Total Today R53.83 - Other fatigue Referrals Orthopedics Referral G89.29 - Other chronic pain, M54.50 - Low back pain, unspecified Medications: New ezetimibe (Zetia) 10 mg PO DAILY 30 days 30 tabs 3RF Coding Level of Care Code Est Pt Level 4 (47651) Complex EM visit Add On G2211 Diagnoses Hypercholesterolemia E78.00 Mild anemia D64.9 Leukocytopenia D72.819 Fatigue R53.83 Chronic low back pain M54.50; G89.29
[2023-12-14 11:01] VITALS: BP 140/88; PULSE 82; RESP 16; TEMP 37; O2SAT 95; BMI 26.4
== END 2023-12-14 11:33 | disposition home or self-care (01) ==
PROVIDERS: PCP Nurse Practitioner Family; Visit Provider Nurse Practitioner Family
DX: E78.00 Pure hypercholesterolemia, unspecified (principal); D64.9 Anemia, unspecified; D72.819 Decreased white blood cell count, unspecified; R53.83 Other fatigue; M54.50 Low back pain, unspecified; G89.29 Other chronic pain

== ENCOUNTER → 2023-12-14 10:41 | Outpatient (BNVA) | payer MEDICARE, MEDICAID, SELFPAY | PROVIDERS: PCP Nurse Practitioner Family; Visit Provider Nurse Practitioner Family | DX: E78.00 Pure hypercholesterolemia, unspecified (principal); D64.9 Anemia, unspecified; D72.819 Decreased white blood cell count, unspecified; R53.83 Other fatigue; M54.50 Low back pain, unspecified; G89.29 Other chronic pain | CPT/HCPCS: 99212 ==

== ENCOUNTER 2023-12-14 11:45 | Outpatient (REF) | payer MEDICARE, MEDICAID, SELFPAY ==
[2023-12-14 14:52] LABS: Vitamin D 25-OH Total 69.6 ng/mL (>30)
[2023-12-14 15:06] LABS: Folate 10.7 ng/mL (> or = 4.0); Vitamin B12 560 pg/mL (200-900)
== END 2023-12-14 11:46 | disposition home or self-care (01) ==
LOC: HO.WFDLDS 11:45
PROVIDERS: Visit Provider Nurse Practitioner Family
DX: D64.9 Anemia, unspecified (principal); R53.83 Other fatigue
CPT/HCPCS: 36415; 82306; 82607; 82746; 99212